=== PATIENT | male | born 1990 | race Caucasian/White ===

== ENCOUNTER 2019-06-16 08:56 | Emergency (ER) | payer OTHER ==
[~2019-06-16] VITALS: Ht 185.4 cm; Wt 113.6 kg
--- NOTE | 2019-06-16 09:42 | PHYS DOC ---
Past History Past Medical History: No Pertinent History Past Surgical History: Other Additional Past Surgical Histo: right shoulder surgery Alcohol Use: None Adult General Chief Complaint Chief Complaint: KNEE INJURY HPI HPI 28-year-old male presents with left knee pain. The patient was stepping down off of a piece of equipment and turning his body when he felt a popping sensation in the medial left knee. He is able to walk, but now has a limp. He is concerned that he caused some kind of damage inside the knee. He has no history of knee problems previously. His BMI is 33. The patient denies polyuria. He does not complain of either injuries. He was at work when this happened. Review of Systems Review of Systems Constitutional: Denies fever or chills [] Eyes: Denies change in visual acuity, redness, or eye pain [] HENT: Denies nasal congestion or sore throat [] Respiratory: Denies cough or shortness of breath [] Cardiovascular: No additional information not addressed in HPI [] GI: Denies abdominal pain, nausea, vomiting, bloody stools or diarrhea [] : Denies dysuria or hematuria [] Musculoskeletal: Left medial knee pain[] Integument: Denies rash or skin lesions [] Neurologic: Denies headache, focal weakness or sensory changes [] Endocrine: Denies polyuria or polydipsia [] All other systems were reviewed and found to be within normal limits, except as documented in this note. Allergies Allergies Allergies Coded Allergies Type Severity Reaction Last Updated Verified No Known Drug Allergies 06/16/19 No Physical Exam Physical Exam Constitutional: Well developed, well nourished, no acute distress, non-toxic appearance. [] HENT: Normocephalic, atraumatic, bilateral external ears normal, oropharynx moist, no oral exudates, nose normal. [] Eyes: PERRLA, EOMI, conjunctiva normal, no discharge. [] Neck: Normal range of motion, no tenderness, supple, no stridor. [] Cardiovascular:Heart rate regular rhythm, no murmur [] Lungs & Thorax: Bilateral breath sounds clear to auscultation [] Abdomen: Bowel sounds normal, soft, no tenderness, no masses, no pulsatile masses. [] Skin: Warm, dry, no erythema, no rash. [] Back: No tenderness, no CVA tenderness. [] Extremities: Mild tenderness left medial knee, mild swelling, solid ligament end feel of all ligaments. No ecchymosis or obvious deformity. Walks with a limp[] Neurologic: Alert and oriented X 3, normal motor function, normal sensory fu nction, no focal deficits noted. [] Psychologic: Affect normal, judgement normal, mood normal. [] Current Patient Data Vital Signs Vital Signs Date Time Temp Pulse Resp B/P (MAP) Pulse Ox O2 Delivery O2 Flow Rate FiO2 06/16/19 09:00 98.4 61 18 133/101 (112) 98 Room Air EKG EKG [] Radiology/Procedures Radiology/Procedures [] Course & Med Decision Making Course & Med Decision Making Pertinent Labs and Imaging studies reviewed. (See chart for details) The patient's x-rays unremarkable. This is likely a meniscal injury. I have advised NSAID therapy, ice, and rest for couple days. If it does not improve in a week, he should make an appointment with orthopedics for further evaluation. Patient states verbal agreement he is stable for discharge at this time. [] Dragon Disclaimer Dragon Disclaimer This electronic medical record was generated, in whole or in part, using a voice recognition dictation system. Departure Departure: Impression: Primary Impression: Meniscal injury Disposition: HOME, SELF-CARE Condition: STABLE Referrals: PCP,NO (PCP) Patient Instructions: Knee - Cartilage (Meniscus) Injury Problem Qualifiers Primary Impression: Meniscal injury Encounter type: initial encounter Laterality: left Qualified Codes: S83.8X2A - Sprain of other specified parts of left knee, initial encounter YAMINI LOMAS DO Jun 16, 2019 09:42
--- NOTE | 2019-06-16 09:57 | RAD ---
KNEE LEFT 4V 06/16/2019 9:32 AM INDICATION: Pain after stepping with return COMPARISON: None available. TECHNIQUE: 4 views of the left knee are provided. FINDINGS/ IMPRESSION: There is no acute fracture or dislocation. Joint spaces are maintained. Bone mineralization is within normal limits. Regional soft tissues are within normal limits. There is no soft tissue gas or osseous erosion. No radiopaque foreign body. No significant knee joint effusion. Electronically signed by: Deanna Mccarthy MD (06/16/2019 9:54 AM) [id number]
[2019-06-16 10:01] VITALS: BP 126/90
== END 2019-06-16 10:02 | disposition home or self-care (01) ==
LOC: ER 08:56
DX: S89.92XA Unspecified injury of left lower leg, initial encounter (principal); W22.8XXA Striking against or struck by other objects, initial encounter; Y93.89 Activity, other specified; Y92.89 Other specified places as the place of occurrence of the external cause; Y99.8 Other external cause status
CPT/HCPCS: 73564; 99284

== ENCOUNTER 2020-04-04 16:37 | Emergency (ER) | payer OTHER ==
[~2020-04-04] VITALS: Ht 185.4 cm; Wt 113.6 kg
--- NOTE | 2020-04-04 16:57 | PHYS DOC ---
Past History Past Medical History: No Pertinent History, Hypertension Past Surgical History: Other Additional Past Surgical Histo: right shoulder surgery; LEFT MEDISCUS REPAIR Alcohol Use: Occasionally General Adult EDM: Chief Complaint: CHEST PAIN HPI: HPI: Patient is a 29-year-old male who presents with chief complaint of chest pain. Patient has had right-sided anterior chest pain that radiates to the abdomen since yesterday. Patient describes intermittent dull pain that is currently 2 out of 10. Patient had some shortness of breath earlier that is currently not there. Patient denies any activities that make the symptoms worse or better. Patient denies any nausea vomiting. Patient denies any upper respiratory infection symptoms. Patient was seen at urgent care earlier today and needed a Covid test but no EKG or chest x-ray. Patient has no symptoms of Covid at this time. Review of Systems: Review of Systems: Constitutional: Denies fever or chills Eyes: Denies change in visual acuity HENT: Denies nasal congestion or sore throat Respiratory: Patient denies cough but had some mild shortness of breath earlier Cardiovascular: Patient complains of chest pain but no edema GI: Denies abdominal pain, nausea, vomiting, bloody stools or diarrhea : Denies dysuria Musculoskeletal: Denies back pain or joint pain Integument: Denies rash Neurologic: Denies headache, focal weakness or sensory changes Endocrine: Denies polyuria or polydipsia Lymphatic: Denies swollen glands Psychiatric: Denies depression or anxiety Allergies: Allergies: Allergies Coded Allergies Type Severity Reaction Last Updated Verified No Known Drug Allergies 04/04/20 No Physical Exam: PE: Constitutional: Well developed, well nourished, no acute distress, non-toxic appearance. [] HENT: Normocephalic, atraumatic, bilateral external ears normal, no trismus nose normal. [] Eyes: PERRLA, EOMI, conjunctiva normal, no discharge. [] Neck: Normal range of motion, no tenderness, supple, no stridor. [] Cardiovascular:Heart rate regular rhythm, peripheral pulse intact, cap refill is brisk Lungs & Thorax: Bilateral breath sounds clear, no respiratory distress Abdomen: soft, no tenderness, no masses, no pulsatile masses. [] Skin: Warm, dry, no erythema, no rash. [] Back: No tenderness, no CVA tenderness. [] Extremities: No tenderness, no cyanosis, no clubbing, ROM intact, no edema. [] Neurologic: Alert and oriented X 3, normal motor function, normal sensory function, no focal deficits noted. [] Psychologic: Affect normal, judgement normal, mood normal. [] Current Patient Data: Labs: Laboratory Tests Test 04/04/20 17:03 White Blood Count 6.3 x10^3/uL Red Blood Count 5.01 x10^6/uL Hemoglobin 15.5 g/dL Hematocrit 45.9 % Mean Corpuscular Volume 92 fL Mean Corpuscular Hemoglobin 31 pg Mean Corpuscular Hemoglobin Concent 34 g/dL Red Cell Distribution Width 12.8 % Platelet Count 279 x10^3/uL Neutrophils (%) (Auto) 59 % Lymphocytes (%) (Auto) 32 % Monocytes (%) (Auto) 6 % Eosinophils (%) (Auto) 2 % Basophils (%) (Auto) 1 % Neutrophils # (Auto) 3.7 x10^3uL Lymphocytes # (Auto) 2.0 x10^3/uL Monocytes # (Auto) 0.4 x10^3/uL Eosinophils # (Auto) 0.1 x10^3/uL Basophils # (Auto) 0.1 x10^3/uL D-Dimer (Eli) < 0.19 mg/L Sodium Level 141 mmol/L Potassium Level 3.5 mmol/L Chloride Level 104 mmol/L Carbon Dioxide Level 28 mmol/L Anion Gap 9 Blood Urea Nitrogen 10 mg/dL Creatinine 1.0 mg/dL Estimated GFR (Cockcroft-Gault) 89.6 BUN/Creatinine Ratio 10 Glucose Level 94 mg/dL Calcium Level 8.8 mg/dL Total Bilirubin 0.3 mg/dL Aspartate Amino Transf (AST/SGOT) 18 U/L Alanine Aminotransferase (ALT/SGPT) 37 U/L Alkaline Phosphatase 76 U/L Troponin I Quantitative < 0.017 ng/mL Total Protein 7.5 g/dL Albumin 4.3 g/dL Albumin/Globulin Ratio 1.3 Lipase 81 U/L Vital Signs: Vital Signs Date Time Temp Pulse Resp B/P (MAP) Pulse Ox O2 Delivery O2 Flow Rate FiO2 04/04/20 16:40 98.4 85 20 162/92 (115) 100 Room Air EKG: EKG: EKG interpreted by me normal sinus rhythm with rate 87 normal axis, incomplete right bundle branch block, nonspecific ST changes, normal intervals [] Radiology/Procedures: Radiology/Procedures: [][address] [address] IMAGING REPORT Signed PATIENT: KYLEE GALAN ACCOUNT: [id number] : 1990 LOCATION: ER AGE: 29 SEX: M EXAM STATUS: PRE ER ORD. PHYSICIAN: NORA MELCHOR MD REASON: chest pain, shortness of breath, heaviness in chest, dizziness PROCEDURE: PORTABLE CHEST 1V PORTABLE CHEST 1V History: Reason: chest pain, shortness of breath, heaviness in chest, dizziness / Spl. Instructions: / History: Comparison: None. Findings: No consolidation or pleural effusion. Normal heart size. No pneumothorax. Elevation the right hemidiaphragm. Impression: 1. No acute cardiopulmonary process. Electronically signed by: Axel Mcgowan DO (04/04/2020 5:35 PM) [facility] DICTATED AND SIGNED BY: AXEL MCGOWAN DO DATE: 04/04/20 1735 CC: NORA MELCHOR MD; PCP,NO ~MTH0 0 Heart Score: HEART Score for Chest Pain: HEART Score for Chest Pain Response (Comments) Value History Slighlty/Non-Suspicious 0 ECG Nonspecific Repolarizatio 1 Age < 45 0 Risk Factors 1 or 2 Risk Factors 1 Troponin < Normal Limit 0 Total 2 Risk Factors: Risk Factors: DM, Current or recent (<one month) smoker, HTN, HLP, family history of CAD, obesity. Risk Scores: Score 0 - 3: 2.5% MACE over next 6 weeks - Discharge Home Score 4 - 6: 20.3% MACE over next 6 weeks - Admit for Clinical Observation Score 7 - 10: 72.7% MACE over next 6 weeks - Early Invasive Strategies Course & Med Decision Making: Course & Med Decision Making Pertinent Labs and Imaging studies reviewed. (See chart for details) [] 29-year-old male presents with right-sided chest pain. Symptoms are atypical. Cardiac work-up is negative heart score is 2, doubt acute coronary syndrome. Patient has a negative D-dimer normal cardiac silhouette, doubt pulmonary embolism or thoracic aortic dissection. Dragon Disclaimer: Dragon Disclaimer: This electronic medical record was generated, in whole or in part, using a voice recognition dictation system. Departure Departure: Impression: Primary Impression: Chest pain Disposition: 01 DC HOME SELF CARE/HOMELESS Condition: STABLE Referrals: PCP,NO (PCP) Follow-up with your doctor in 2 to 3 days Patient Instructions: Chest Pain (Nonspecific) Additional Instructions: EMERGENCY DEPARTMENT GENERAL DISCHARGE INSTRUCTIONS THANK YOU for coming to [facility] Emergency Department (ED) today and trusting us with your care. We trust that you had a positive experience in our Emergency Department. If you wish to speak to the department Management you can contact the emergency department at YOUR FOLLOW UP INSTRUCTIONS ARE FOLLOWS: Do you have a private doctor? If you do not have a private doctor, please ask for a resource list of physicians or clinics that may be able to assist you with follow up ca re. The Emergency Physician has interpreted your x-rays. The X-ray specialist will also review them. If there is a change in the findings you will be notified in 48 hours when at all possible. A lab test or lab culture may have been done, your results will be reviewed and you will be notified if you need a change in treatment. ADDITIONAL INSTRUCTIONS AND INFORMATION Your care today has been supervised by a physician who is specially trained in emergency care. Many problems require more than one evaluation for a complete diagnosis and treatment. We recommend that you schedule your follow up appointment as recommended to ensure complete treatment of your illness or injury. If you are unable to obtain follow up care and continue to have a problem, or if your condition worsens we recommend that you return to the ED. We are not able to safely determine your condition over the phone nor are we able to give sound medical advice over the phone. For these safety reasons, if you call for medical advice we will ask you to come to the ED for further evaluation If you have any questions regarding these discharge instructions please call the ED at SAFETY INFORMATION In the interest of safety, wellness, and injury prevention; we encourage you to wear your seatbelt, if you smoke; quit smoking, and we encourage your family to use protective helmet for bicycling and other sporting events that present an increased risk for head injury. IF YOUR SYMPTOMS WORSEN OR NEW SYMPTOMS DEVELOP, OR YOU HAVE CONCERNS ABOUT YOUR CONDITION; OR IF YOUR CONDITION WORSENS WHILE YOU ARE WAITING FOR YOUR FOLLOW UP APPOINTMENT; EITHER CONTACT YOUR PRIMARY CARE DOCTOR, THE PHYSICIAN WHOSE NAME AND NUMBER YOU WERE GIVEN, OR RETURN TO THE ED IMMEDIATELY. NORA MELCHOR MD Apr 04, 2020 16:57
--- NOTE | 2020-04-04 17:00 | EKG ---
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
[2020-04-04 17:16] LABS: BASO # 0.1 x10^3/uL (0.0-0.2); BASO % 1 % (0-3); EOS # 0.1 x10^3/uL (0.0-0.7); EOS % 2 % (0-3); HEMATOCRIT 45.9 % (39.0-53.0); HEMOGLOBIN 15.5 g/dL (13.0-17.5); LYMPH % 32 % (24-48); MEAN CORPUSCULAR HEMOGLOBIN 31 pg (25-35); MEAN CORPUSCULAR HGB CONC 34 g/dL (31-37); MEAN CORPUSCULAR VOLUME 92 fL (79-100); MONO # 0.4 x10^3/uL (0.0-1.1); MONO % 6 % (0-9); NEUT # 3.7 x10^3uL (1.8-7.7); NEUT % 59 % (31-73); PLATELET COUNT 279 x10^3/uL (140-400); RED BLOOD COUNT 5.01 x10^6/uL (4.30-5.70); RED CELL DISTRIBUTION WIDTH 12.8 % (11.5-14.5); WHITE BLOOD COUNT 6.3 x10^3/uL (4.0-11.0)
[2020-04-04 17:26] LABS: CALCIUM 8.8 mg/dL (8.5-10.1); GFR 89.6; POTASSIUM 3.5 mmol/L (3.5-5.1)
[2020-04-04 17:32] LABS: ALBUMIN 4.3 g/dL (3.4-5.0); ALBUMIN/GLOBULIN RATIO 1.3 (1.0-1.7); TOTAL BILIRUBIN 0.3 mg/dL (0.2-1.0); TOTAL PROTEIN 7.5 g/dL (6.4-8.2)
--- NOTE | 2020-04-04 17:37 | RAD ---
PORTABLE CHEST 1V History: Reason: chest pain, shortness of breath, heaviness in chest, dizziness / Spl. Instructions: / History: Comparison: None. Findings: No consolidation or pleural effusion. Normal heart size. No pneumothorax. Elevation the right hemidiaphragm. Impression: 1. No acute cardiopulmonary process. Electronically signed by: Axel Velasco DO (04/04/2020 5:35 PM) [facility] [place]
[2020-04-04 18:12] VITALS: BP 144/91
== END 2020-04-04 18:12 | disposition home or self-care (01) ==
LOC: ER 16:37
DX: R07.89 Other chest pain (principal); R06.02 Shortness of breath; I10 Essential (primary) hypertension
CPT/HCPCS: 36415; 71045; 80053; 83690; 84484; 85025; 85379; 93005; 99285

== ENCOUNTER → 2020-10-19 | Outpatient (CLI) | payer OTHER ==
--- NOTE | 2020-10-19 15:11 | RAD ---
CT HEAD WITHOUT CONTRAST 10/19/2020 2:47 PM Indication: Reason: DIZZINESS VIRAL LABYRINTHITIS / Comparison: None Procedure: Multidetector CT imaging of the head was performed without the administration of contrast. Findings: There is no evidence of acute intracranial hemorrhage. There is no evidence of acute territ orial infarction. Please note that CT is limited for evaluation of acute ischemia. No mass effect or midline shift is identified . The ventricles and basilar cisterns have an appropriate appearance. No abnormal extra-axial fluid collections are seen. No acute osseous changes are identified. Impression: No evidence of acute intracranial abnormality CT DOSING PQRS STATEMENT: One or more of the following individualized dose reduction techniques were utilized for this examinat ion: 1. Automated exposure control 2. Adjustment of the mA and/or kV according to patient size 3. Use of iterative reconstruction technique Electronically signed by: Jaime Bentley MD (10/19/2020 3:09 PM) [id number]
== END ==
LOC: CT 14:26
PROVIDERS: ATTEND Physician Assistant
DX: H83.03 Labyrinthitis, bilateral (principal); J01.00 Acute maxillary sinusitis, unspecified; R42 Dizziness and giddiness
CPT/HCPCS: 70450

== ENCOUNTER 2020-11-16 08:25 | Emergency (ER) | payer OTHER ==
[~2020-11-16] VITALS: Ht 185.4 cm; Wt 113.6 kg
[2020-11-16 08:30] VITALS: BP 144/91
--- NOTE | 2020-11-16 08:40 | PHYS DOC ---
Past History Past Medical History: Hypertension Past Surgical History: Other Additional Past Surgical Histo: right shoulder surgery; LEFT MEDISCUS REPAIR Alcohol Use: Occasionally Adult General Chief Complaint Chief Complaint: DIZZY/LIGHT HEADED [facility] HPI Patient is a 30-year-old male presenting for dizziness. This is a chronic iss ue. It has been going on for past 3 months without any known inciting event, trauma ingestion or major change in health. He has history of hypertension only and has been on the same medication for a while. Reports he saw his primary care for this initially and it was blamed on a sinus infection but he reports he recovered from this and he still has intermittent dizziness. Reports just feeling weak, foggy at times has floaters in his eyes and just does not feel well whenever episodes occur, denies any vertiginous symptoms, blacking out or falls. Reports symptoms occur mostly with positional changes. Reports he has had extensive blood work done in outpatient setting including his thyroid that is all been normal, he has had various EKGs and a CT head which was unremarkable 1 month ago. He is here because he is wanting more answers on his dizziness, he is not currently dizzy Review of Systems Review of Systems Fourteen body systems of review of systems have been reviewed. See HPI for pertinent positives and negative responses, other gamino all other systems are negative, non-pertinent or non-contributory Allergies Allergies Allergies Coded Allergies Type Severity Reaction Last Updated Verified No Known Drug Allergies 04/04/20 No Physical Exam Physical Exam Constitutional: Well developed, well nourished, no acute distress, non-toxic appearance. HENT: Normocephalic, atraumatic, bilateral external ears normal, oropharynx moist, no oral exudates, nose normal. Eyes: PERRLA, EOMI, conjunctiva normal, no discharge. Neck: Normal range of motion, no tenderness, supple, no stridor. Cardiovascular: Heart rate regular, sinus rhythm, no murmurs rubs or gallops Lungs & Thorax: Bilateral breath sounds clear to auscultation Abdomen: Bowel sounds normal, soft, no tenderness, no masses, no pulsatile masses. Nonsurgical abdomen, no peritoneal signs Skin: Warm, dry, no erythema, no rash. Back: No tenderness, no CVA tenderness. Extremities: No tenderness, no cyanosis, no clubbing, ROM intact, no edema. Neurologic: Alert and oriented X 3, cranial nerves II through XII intact, normal motor & sensory function, no focal deficits noted. Gait unremarkable Psychologic: Affect normal, judgement normal, mood normal. Current Patient Data Vital Signs Vital Signs Date Time Temp Pulse Resp B/P (MAP) Pulse Ox O2 Delivery O2 Flow Rate FiO2 11/16/20 08:30 97.9 75 16 144/91 100 Room Air Vital Signs Date Time Temp Pulse Resp B/P (MAP) Pulse Ox O2 Delivery O2 Flow Rate FiO2 11/16/20 08:30 97.9 75 16 144/91 100 Room Air Lab Results Laboratory Tests Test 11/16/20 08:51 Glucose (Fingerstick) 108 mg/dL EKG EKG EKG ordered and interpreted by myself at 0839 hrs. as sinus rhythm at 79 bpm, unremarkable intervals, no axis deviation, no acute ischemic findings, no STEMI Radiology/Procedures Radiology/Procedures [] Heart Score C/O Chest Pain: No HEART Score for Chest Pain: HEART Score for Chest Pain Response (Comments) Value History Slighlty/Non-Suspicious 0 ECG Normal 0 Age < 45 0 Risk Factors 1 or 2 Risk Factors 1 Troponin < Normal Limit 0 Total 1 Risk Factors: Risk Factors: DM, Current or recent (<one month) smoker, HTN, HLP, family history of CAD, obesity. Risk Scores: Risk Factors: DM, Current or recent (<one month) smoker, HTN, HLP, family history of CAD, obesity. Course & Med Decision Making Course & Med Decision Making ABCs unremarkable. I disclosed entirety of ER findings and discussed most likely diagnosis of dizziness of unknown etiology. I disclosed that he is already had an extensive work-up in outpatient setting such as lab work, radiographs and CT head that were all unremarkable. He is asymptomatic today. I disclosed that you could repeat a lot of things but this would likely not chemical cell changer, I stressed that he would likely would benefit from echocardiography and outpatient neurology follow-up. Patient agreed, he accepted reassurance and wanting to pursue continued outpatient follow-up. Strict return precautions were also discussed at length with good understanding by patient. Patient voiced understanding and agreement with the plan. Patient knows to come back for repeat evaluation if concerning signs or symptoms present prior to outpatient follow- up. Hemodynamically stable, ambulatory and well-appearing at time of disposition. Dragon Disclaimer Dragon Disclaimer This electronic medical record was generated, in whole or in part, using a voice recognition dictation system. Departure Departure: Impression: Primary Impression: Dizzy spells Disposition: HOME / SELF CARE / HOMELESS Condition: STABLE Referrals: CINTIA GOMEZ MD (PCP) Patient Instructions: Dizziness Additional Instructions: As discussed prior to ER departure, your vital signs, physical examination and review of outpatient work-up performed thus far was nonconcerning for any emergent or surgical issues. As disclosed, there is further work-up to be performed and I recommend you seek outpatient echocardiogram and neurology consultation for your ongoing symptoms. If any concerning signs or symptoms present prior to outpatient follow-up please do not hesitate to come back for repeat evaluation. It was a pleasure to take care of you and I wish you the best going forward ANGELA VINSON DO Nov 16, 2020 08:40
--- NOTE | 2020-11-16 08:48 | EKG ---
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
== END 2020-11-16 09:15 | disposition home or self-care (01) ==
LOC: ER 08:25
DX: R42 Dizziness and giddiness (principal); R53.1 Weakness; I10 Essential (primary) hypertension
CPT/HCPCS: 82947; 93005; 99284

== ENCOUNTER → 2021-08-16 | Outpatient (CLI) | payer OTHER ==
--- NOTE | 2021-08-16 15:45 | RAD ---
Study: XR KNEE 4 VIEWS WITH PATELLA_RT Indication: Twisting injury. Pain. Comparison: None. Findings: No displaced fracture. Alignment is anatomic. Maintained femorotibial compartment joint space height. No large knee joint effusion. Impression: No radiographic evidence for an acute fracture. Alignment is anatomic. Electronically signed by: MIRTA LIAO MD (08/16/2021 3:43 PM) [facility]
== END ==
LOC: RAD 14:32
PROVIDERS: ATTEND Nurse Practitioner Family
DX: S89.91XA Unspecified injury of right lower leg, initial encounter (principal); M25.561 Pain in right knee; W50.2XXA Accidental twist by another person, initial encounter; Y93.89 Activity, other specified; Y92.89 Other specified places as the place of occurrence of the external cause; Y99.9 Unspecified external cause status
CPT/HCPCS: 73564